=== PATIENT | female | born 1960 | race Hispanic/Latino ===

== ENCOUNTER 2023-07-31 08:18 | Emergency (ER) | payer SELFPAY ==
[2023-07-31 08:46] VITALS: BP 176/78; PULSE 108; RESP 16; TEMP 37.2; O2SAT 98
--- NOTE | 2023-07-31 08:47 | ECG_ITS ---
Measurements Intervals [place] Rate: 87 P: 74 [place]: 141 QRS: 57 QRSD: 85 T: 42 QT: 373 QTc: 451 Interpretive Statements SINUS RHYTHM BASELINE ARTIFACT- I, II, III, AVR, AVL AVF, V1 NORMAL ECG NO PREVIOUS ECG AVAILABLE FOR COMPARISON Electronically Signed On 07-31-2023 9:59:52 [employer] by Gino Briggs D.O.
--- NOTE | 2023-07-31 09:25 | ED.GENADULT ---
HPI - General Adult General Stated complaint: High Blood Pressure Source: patient Mode of arrival: ambulatory Limitations: no limitations History of Present Illness HPI narrative: Patient presents for evaluation of elevated blood pressure. She indicates she has been experiencing numbness and tingling in the left upper extremity for the last six days. No recent injury. Denies any chest pain, shortness of breath, jaw pain or neck pain. Denies pain in the LUE per se. No loss of ROM in the affected extremity. She did have some pain in her left shoulder about one month ago however that pain resolved with application of warm moist heat. She is currently visiting family for several months from [place]. She plans to return back home in about one month. She checked her BP this morning with a reading in high 170's/80's. Denies underlying hx of HTN, DM, or Hyperlipidemia. Her father did have a myocardial infarction. Review of Systems Review of Systems: CONSTITUTIONAL: Denies fever, chills, or sweats. EYES: Denies visual changes, redness, or discharge. ENT: Denies rhinorrhea, congestion, sore throat, or otalgia. CARDIOVASCULAR: Denies chest pain, palpitations, or edema. RESPIRATORY: Denies cough or dyspnea. GASTROINTESTINAL: Denies abdominal pain, nausea, vomiting, or diarrhea. GENITOURINARY: Denies dysuria or hematuria. SKIN: Denies rash or itching. MUSCULOSKELETAL: Denies back pain, joint pain, or myalgia. NEUROLOGIC: Reports numbness and tingling in the left upper extremity PSYCHIATRIC: Denies anxiety or depression. [facility] Past Medical History Medical History No pertinent past medical history Surgical History Surgical History No pertinent past surgical history Family History Family History Father Acute myocardial infarction Social History Social History Smoking status: Never smoker Alcohol intake: never Substance use: never Living arrangements: with family Gender identity (if verbalized by the patient): Female Sexual Orientation (if Verbalized by the Patient): Straight or Heterosexual Spiritual care concerns: No Exam Narrative: GENERAL: Well-appearing, well-nourished, and in no acute distress. HEAD: Normocephalic, atraumatic. EYES: PERRLA and EOMI. ENT: Nares clear, no rhinorrhea or epistaxis. Mucous membranes moist. Oropharynx without tonsillar hypertrophy exudate or other lesions. Bilateral TMs pearly cm nonbulging NECK: Supple. No adenopathy or masses. No carotid bruits or JVD. no tenderness in the neck. CHEST: Clear to auscultation. No respiratory distress. No wheezes rales or rhonchi HEART: Regular rate and rhythm. No murmur heard. Normal peripheral pulses. ABDOMEN: Soft, nontender, nondistended, normal active bowel sounds. EXTREMITIES: No tenderness in the left upper extremity. Full range of motion of all joints of the left upper extremity. 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 NEURO: No focal deficits. Alert and oriented x3. PSYCH: Normal mood and affect. Course Course Emergency Course: This is a 63-year-old female who presented for evaluation of numbness in the left upper extremity. She denies any musculoskeletal pain at the present time. She did have some shoulder pain a month ago but that has since resolved. She is visiting from the area and does not have great follow-up. Her EKG today was essentially normal. However given her family history. I opted to transfer her to the ER to rule out cardiac pathology. I discussed over the thinks of case with Yoana Falcon at [facility] and she indicated that Dr Rosas would accept patient for transfer there. Patient was updated throughout her stay here and was
== END 2023-07-31 09:20 | disposition short-term general hospital (02) ==
PROVIDERS: Emergency Provider Nurse Practitioner
DX: R20.2 Paresthesia of skin (principal); I10 Essential (primary) hypertension
CPT/HCPCS: 93005; 99213; G0463

== ENCOUNTER 2023-07-31 09:39 | Emergency (ER) | payer SELFPAY ==
--- NOTE | ~2023-07-31 | CT_ITS ---
Non-contrast Head CT History: Left arm paresthesia Technique: Axial non-contrast imaging of the brain was performed. Dose reduction technique was used on this scan by utilizing automated exposure control and iterative reconstruction technique. The dose -length product (DLP) was 756.67 mGy-cm. Findings: There is no evidence of intracranial hemorrhage, mass lesion, or acute infarct. Brain par enchyma appears normal. The ventricles and subarachnoid spaces are normal in size. The calvarium ap pears normal. The visualized paranasal sinuses and mastoid air cells are clear. Impression: No significant abnormality seen. Reviewed, dictated and finalized at location . MODELING ARCHITECT Impression: No significant abnormality seen.
[2023-07-31 09:47] VITALS: BP 175/69; PULSE 101; RESP 16; TEMP 36.4; O2SAT 100
--- NOTE | 2023-07-31 09:47 | ECG_ITS ---
Measurements Intervals [place] Rate: 91 P: 73 [place]: 133 QRS: 61 QRSD: 82 T: 53 QT: 363 QTc: 447 Interpretive Statements SINUS RHYTHM BASELINE ARTIFACT- I, II, III, AVR, AVL ,AVF NORMAL ECG NO PREVIOUS ECG AVAILABLE FOR COMPARISON Electronically Signed On 07-31-2023 11:11:05 [employer] by Gino Briggs D.O.
--- NOTE | 2023-07-31 10:13 | ED.GENADULT ---
HPI - General Adult General Chief complaint: Recheck/Abnormal Lab/Rx Stated complaint: HTN, left arm weakness Time Seen by Provider: 07/31/23 09:43 History of Present Illness HPI narrative: 63-year-old female presents to the emergency department for evaluation intermittent left hand tingling. Patient states approximately 6 weeks ago she had onset of some left hand tingling, tingling started morning and resolved over the course of the day. Patient states she does do some repetitive use for her job. Patient states that she had no numbness or tingling when she went to bed last night but she woke up this morning she had onset of a tingling. For the last episode of tingling she states it resolved over the course of the day. Patient has no prior history of CVA and denies any associated weakness. Related Data Home Medications Medication Instructions Recorded Confirmed No Home Medications 07/31/23 07/31/23 Allergies Allergy/AdvReac Type Severity Reaction Status Date / Time No Known Allergies Allergy Verified 07/31/23 10:18 Review of Systems Review of Systems: All systems reviewed & are unremarkable except as noted in HPI and below PMFSH Past Medical History Medical History No pertinent past medical history Surgical History Surgical History No pertinent past surgical history Family History Family History Father Acute myocardial infarction Social History Social History Smoking status: Never smoker Alcohol intake: never Substance use: never Living arrangements: with family Gender identity (if verbalized by the patient): Female Sexual Orientation (if Verbalized by the Patient): Straight or Heterosexual Spiritual care concerns: No Exam Narrative: APPEARANCE: Well appearing, no pain, no distress, well-nourished. HEAD: normocephalic, atraumatic. EYES: PERRLA/EOMI, conjunctivae clear. NOSE: Normal no drainage EARS:TMS clear with good light reflex. THROAT: Pharynx clear, no exudate. NECK: Supple. No adenopathy, no masses. RESPIRATORY: Airway patent, respirations nonlabored. Clear to auscultation bilaterally, no rales, rhonchi, wheezing. CARDIOVASCULAR: Regular rate and rhythm without murmurs rubs or gallops. ABDOMINAL: Soft, nontender, nondistended, normal bowel sounds MUSCULOSKELETAL: Moves all extremities. Strength/ROM intact, No edema, No calf tenderness. NEURO: Alert. Cranial nerves II through XII intact. Grossly intact. SKIN: Warm, dry. Normal Color Course Course Emergency Course: [age] old female presenting to the emergency department for evaluation of some tingling to the left hand. Patient has no neuro deficit. Suspect carpal tunnel or repetitive use injury of the left hand. Patient states she does do repetitive motions with her occupation. Symptoms are worse in morning and improves course the day. Patient has a negative head CT and no other neurologic abnormalities. Low concern for CVA at this time. Patient and family were updated on the results of the imaging. All questions and concerns were addressed. Translation services were used. Vital Signs Vital signs: Vital Signs Temperature 97.6 F 07/31/23 09:47 Pulse Rate 101 H 07/31/23 09:47 Respiratory Rate 16 07/31/23 09:47 Blood Pressure 175/69 H 07/31/23 09:47 Pulse Oximetry 100 07/31/23 09:47 Oxygen Delivery Room Air 07/31/23 09:47 Temperature 97.6 F 07/31/23 09:47 Pulse Rate 85 07/31/23 11:52 Respiratory Rate 14 07/31/23 11:52 Blood Pressure 138/67 07/31/23 11:52 Pulse Oximetry 100 07/31/23 11:52 Oxygen Delivery Room Air 07/31/23 09:47 Medical Decision Making Differential Diagnosis Differential Diagnosis: CVA, carpal tunnel
[2023-07-31 10:19] VITALS: BP 137/78; PULSE 84; RESP 16; O2SAT 100
[2023-07-31 10:36] LABS: Basophils Percent Auto 0.5 % (0.2-1.2); Eosinophils Percent Auto 0.3 % (0-4.4); Hematocrit 43.3 % (37.0-47.0); Hemoglobin 14.4 g/dL (12.0-15.0); Immature Granulocyte Absolute 0.01 K/mm3 (0.00-0.031); Immature Granulocyte Percent A 0.2 % (0-0.5); Lymphocytes Absolute Auto 1.15 K/mm3 (0.9-3.2); Mean Corpuscular HGB Conc 33.3 g/dl (32-36); Mean Corpuscular Hemoglobin 29.7 pg (26-34); Mean Corpuscular Volume 89.3 fl (80-100); Mean Platelet Volume 11.6 fl (7.4-10.4); Monocytes Absolute Auto 0.3 K/mm3 (0.1-0.6); Monocytes Percent Auto 5.6 % (2.6-8.5); Neutrophils Absolute Auto 4.5 K/mm3 (1.3-6.7); Neutrophils Percent Auto 74.4 % (45.5-73.1); Platelet Count Result 205 k/mm3 (150-375); Red Blood Count 4.85 M/mm3 (4.2-5.4); Red Cell Distribution Width 11.9 % (11.5-14.5)
[2023-07-31 11:09] LABS: Alanine Aminotransferase 32 U/L (6-35); Albumin Level 4.4 g/dL (3.5-5.1); Alkaline Phosphatase 98 U/L (38-126); Anion Gap 9 mmol/L (8-16); Aspartate Amino Transferase 29 U/L (14-36); Bilirubin,Total 0.4 mg/dL (0.2-1.3); Blood Urea Nitrogen 12 mg/dL (7-17); Calcium 9.6 mg/dL (8.4-10.2); Carbon Dioxide 25 mmol/L (22-30); Chloride 108 mmol/L (98-107); Estimated Glomerular Filt Rate > 60; Glucose 118 mg/dL (65-110); Potassium 3.9 mmol/L (3.4-5.0); Sodium 142 mmol/L (137-145)
[2023-07-31 11:52] VITALS: BP 138/67; PULSE 85; RESP 14; O2SAT 100
== END 2023-07-31 11:56 | disposition home or self-care (01) ==
PROVIDERS: Emergency Provider Emergency Medicine
DX: R20.2 Paresthesia of skin (principal)
CPT/HCPCS: 36415; 70450; 80053; 85025; 93005; 99284